=== PATIENT | female | born 1940 | race Asian ===

== ENCOUNTER 2025-03-12 15:04 | Emergency (ER) | payer BC, OTHER, SELFPAY ==
[2025-03-12] VITALS (12 sets, daily range): BP systolic 102–132; BP diastolic 44–74; BMI 23.7
[2025-03-12 16:00] LABS: Hematocrit 26.8 % (37.0-47.0); Hemoglobin 9.2 g/dL (12.0-16.0); Mean Corp Hgb Conc. 34.3 g/dL (33.0-37.0); Mean Corpuscular Volume 98.5 fL (81.0-99.0); Nucleated Red Blood Cells % 0 %; Platelet Count 134 10^3/uL (130-400); Red Cell Dist. Width 11.7 % (11.5-14.5)
[2025-03-12 16:04] LABS: ALT (SGPT) 14 U/L (0-35); AST (SGOT) 25 U/L (14-36); Albumin 3.6 g/dl (3.5-5.0); Alkaline Phosphatase 45 U/L (38-126); Blood Urea Nitrogen 39 mg/dl (7-17); Calcium 8.9 mg/dl (8.4-10.2); Carbon Dioxide 24 mmol/L (22-30); Chloride 113 mmol/L (98-107); Estimated Creatinine Clearance 24 ml/min; Glucose 145 mg/dl (70-99); Potassium 4.3 mmol/L (3.5-5.1); Sodium 141 mmol/L (135-145); Total Protein 6.5 g/dl (6.3-8.2); eGFR 34.58
[2025-03-12] MEDS: NSS 250 IV ×2 (17:03→17:39)
[2025-03-12] MEDS: ZOFRAN 4 MG IV (17:04)
[2025-03-12] MEDS: PROTONIX IV 40 MG IV (17:04)
[2025-03-12 17:39] LABS: Lipase 244 U/L (23-300)
--- NOTE | 2025-03-12 17:49 | ED.GENMED ---
History of Present Illness
<Tarsha Anderson PA-C - Last Filed: 03/14/25 09:13>
General
Chief Complaint: Overdose Unintentional
Source: family
Exam Limitations: dementia
Time Seen by Provider: 03/12/25 16:33
Nursing documentation reviewed up to this point in time: agreed with
History of Present Illness
History of Present Illness:
pt is a 84 y/o F
h/o dementia
afib on eliquis
here with n/v/d, epigastric pain after accidentally taking her 's morning meds
pt just moved in with daughter who is taking care of both pt and her hsuband who have dementia
pt's daughter put dad's meds on a spoon and walked away with him inside and when she came back to the [facility], the patient had taken the meds on the spoon
each were 1 dose:
rexulti 2 mg
metformin 500 mg
doxazosin 4 mg
paroxetine 10 mg
AREDS 2 soft gel
pt was fine for 2 hours and then developed diarrhea, then fatigue, nausea/vomiting x 1
was hypotensive for EMS
bg 300
given ivf
now occasionally belching with epigastirc pain and saying she has headache
she is communicative and can answer questions
at her [facility] mental status
no cp, sob, syncope, persistent vomiting, black stool
has cr baseline 1.3
Past History
<Tarsha Anderson PA-C - Last Filed: 03/14/25 09:13>
Past History
ED Past Medical History: Arrthythmia, HTN, Other (dementia) and Other (ckd)
Social History
Tobacco: Non-smoker
Alcohol: None
Drug: None
Personal:
Living: with family
Review of Systems
<Tarsha Anderson PA-C - Last Filed: 03/14/25 09:13>
Review of Systems
Allergies reviewed?: Yes
All Other Systems: Not applicable
Phy Exam
<Tarsha Anderson PA-C - Last Filed: 03/14/25 09:13>
Physical Exam
Physical Exam:
GENERAL: Alert , pale; eyes closed, opens to stimuli, answers questions, sleepy in no apparent distress
EYE: pupils equal and reactive
NECK: Supple
ENT: o/p clr, mmm.
CARDIAC: irregular rhythm, rate controlled, no edema
LUNGS: Clear breath sounds bilaterally, no acute respiratory distress, no wheezes/rales/rhonchi
ABDOMEN: Soft, mild epigastric tenderness; no r/g, no cvat, normal bowel sounds
rectal heme NEG brown stool
NEUROLOGICAL: Alert and oriented x 1 no focal neuro deficits
SKIN: Warm and dry, skin intact. pale
MUSCULOSKELETAL: No edema, well perfused. neg ada's sign
PSYCH: Normal and appropriate interaction.
Course
<Tarsha Anderson PA-C - Last Filed: 03/14/25 09:13>
Orders/Labs/Results
Orders:
Orders
03/12/25 15:28
Electrocardiogram (*1) Urgent
Reason for Study: Other
Other Reason for Exam: Potential overdose
Bedside Glucose- Treatment ONCE
Cardiac Monitoring- Treatment ONCE
EKG- Treatment ONCE
03/12/25 15:33
Complete Blood Count/With Diff Urgent
Comprehensive Metabolic Panel Urgent
Lipase Urgent
Comment: ADD ON
03/12/25 16:51
0.9% Sodium Chloride 250 ml [Nss] 250 ml IV BOLUS
03/12/25 16:54
Ondansetron Injectable [Zofran] 4 mg IV NOW STA
Pantoprazole [Protonix IV] 40 mg IV NOW STA
03/12/25 16:55
Add On- LAB Urgent
Tests Added?: lipase
03/12/25 17:39
0.9% Sodium Chloride 250 ml [Nss] 250 ml IV BOLUS
Abnormal Lab Results
03/12/25
15:33
WBC 4.2 L 10^3/uL
(4.8-10.8)
RBC 2.72 L 10^6/uL
(4.20-5.40)
Hgb 9.2 L g/dL
(12.0-16.0)
Hct 26.8 L %
(37.0-47.0)
MCH 33.8 H pg
(27.0-31.0)
Absolute Lymphs (auto) 0.7 L 10^3/uL
(1.2-3.4)
Neutrophils % 78.2 H %
(42.2-75.2)
Lymphocytes % 15.8 L %
(20.5-51.1)
Chloride 113 H mmol/L
(98-107)
BUN 39 H mg/dl
(7-17)
Creatinine 1.5 H mg/dL
(0.6-1.0)
Glucose 145 H mg/dl
(70-99)
03/12/25 15:33
03/12/25 15:33
Vital Signs
Initial and Last Documented VS:
Initial Vital Signs
BP
109/44
03/12/25 15:12
Last Documented Vital Signs
Temp Pulse Resp BP Pulse Ox
36.4 C 83 19 132/69 98
03/12/25 15:19 03/12/25 19:15 03/12/25 19:15 03/12/25 19:15 03/12/25 19:15
<Nico Zimmerman PA-C - Last Filed: 03/12/25 20:46>
Orders/Labs/Results
Orders:
Orders
03/12/25 15:28
Electrocardiogram (*1) Urgent
Reason for Study: Other
Other Reason for Exam: Potential overdose
Bedside Glucose- Treatment ONCE
Cardiac Monitoring- Treatment ONCE
EKG- Treatment ONCE
03/12/25 15:33
Complete Blood Count/With Diff Urgent
Comprehensive Metabolic Panel Urgent
Lipase Urgent
Comment: ADD ON
03/12/25 16:51
0.9% Sodium Chloride 250 ml [Nss] 250 ml IV BOLUS
03/12/25 16:54
Ondansetron Injectable [Zofran] 4 mg IV NOW STA
Pantoprazole [Protonix IV] 40 mg IV NOW STA
03/12/25 16:55
Add On- LAB Urgent
Tests Added?: lipase
03/12/25 17:39
0.9% Sodium Chloride 250 ml [Nss] 250 ml IV BOLUS
Abnormal Lab Results
03/12/25
15:33
WBC 4.2 L 10^3/uL
(4.8-10.8)
RBC 2.72 L 10^6/uL
(4.20-5.40)
Hgb 9.2 L g/dL
(12.0-16.0)
Hct 26.8 L %
(37.0-47.0)
MCH 33.8 H pg
(27.0-31.0)
Absolute Lymphs (auto) 0.7 L 10^3/uL
(1.2-3.4)
Neutrophils % 78.2 H %
(42.2-75.2)
Lymphocytes % 15.8 L %
(20.5-51.1)
Chloride 113 H mmol/L
(98-107)
BUN 39 H mg/dl
(7-17)
Creatinine 1.5 H mg/dL
(0.6-1.0)
Glucose 145 H mg/dl
(70-99)
03/12/25 15:33
03/12/25 15:33
Vital Signs
Initial and Last Documented VS:
Initial Vital Signs
BP
109/44
03/12/25 15:12
Last Documented Vital Signs
Temp Pulse Resp BP Pulse Ox
36.4 C 83 19 132/69 98
03/12/25 15:19 03/12/25 19:15 03/12/25 19:15 03/12/25 19:15 03/12/25 19:15
<Tarsha Anderson PA-C - Last Filed: 03/14/25 09:13>
MDM/Problems Addressed
Differential Diagnosis Includes:
gastritis, vomiting, diarrhea, medication side effects
MDM/Problems Addressed:
84 y/o F with dementia, afib on eliquis
here with gi upset after taking her 's pills accidentally
pt is at her [facility] mental status but a bit sleepy and c/o epigastric pain
vomit and diarrhea x 1 only
no h/o GI problems
was mildly hypotensive which resolved
daughter was able to pull up lab merlin cr results but not hg
cr usually 1.3; 1.5 today; given IVF
hg is 9.2 no old to copmare
heme neg so doubt this is part of clinical picture today
f/u with pcp
plan to observe for 2-3 horus for drop in bp and GI upset
if improved, d/c home
<Tarsha Anderson PA-C - Last Filed: 03/14/25 09:13>
*Pulse Oximetry
SaO2: 100
Oxygen Mode of Delivery: Room air
<Nico Zimmerman PA-C - Last Filed: 03/12/25 20:46>
*Pulse Oximetry
Patient hypoxic: no
*Critical Care Note
Total Time (30-74mins, 75-104mins- exclusive of procedures): Not Applicable
<Nico Zimmerman PA-C - Last Filed: 03/12/25 20:46>
Update Note
Update Note:
6 PM: Patient received in signout pending reevaluation. I spoke with patient's daughter who states that patient continues to be symptom-free and feels well. Was asking for something to eat and drink which she tolerated here without any difficulty.
Daughter feels comfortable taking the patient home. We discussed return precautions to the ER and daughter was agreeable with this. Stable for discharge home.
ED Attending Note
<Tarsha Anderson PA-C - Last Filed: 03/14/25 09:13>
-
Portions of this chart may have been created with voice recognition software.� Occasional wrong word or��sound alike� substitutions may have occurred due to the inherent limitations of voice recognition software.
Discharge Plan
Departure
Patient Disposition: Home (Routine Discharge)
Date of Disposition: 03/12/25
Time of Disposition: 19:14
Patient with high blood pressure during this ER visit?: No
Discharge Problem:
Ingestion, drug, inadvertent or accidental
Instructions: Medication safety
Prescriptions:
No Action
donepezil 5 mg Tablet
5 mg PO DAILY
losartan 25 mg Tablet
25 mg PO DAILY
furosemide 20 mg Tablet
20 mg PO PRN PRN (Reason: as directed for swelling)
metoprolol tartrate 25 mg Tablet
25 mg PO BID
calcium carbonate-vitamin D3 [Calcium 500 + D] 500 mg-5 mcg (200 unit) Tablet
1 tab PO DAILY
Eliquis 2.5 mg Tablet
2.5 mg PO BID
Kerendia 10 mg Tablet
10 mg PO DAILY
Referrals:
Karen Beltran MD [Family Provider, Family Practice]
Interventions
Interventions:
*Risk Screen - Suicide Last Done: 03/12/25 15:19
*General Assessment Last Done: 03/12/25 15:19
*Neglect/Abuse Screening Last Done: 03/12/25 15:19
*ED- Fall Risk Assessment Last Done: 03/12/25 19:29
*ED COVID-19 Vaccine History Last Done: 03/12/25 15:19
*Nursing Disposition Last Done: 03/12/25 19:29
ED- Cardiac Assessment Last Done: 03/12/25 16:06
ED- Neurological Assessment Last Done: 03/12/25 16:06
ED-Psychological Assessment Last Done: 03/12/25 16:06
ED- Pulmonary Assessment Last Done: 03/12/25 16:06
Discharge Date and Time
Discharge Date/Time: 03/12/25 19:42
Print Language: AMHARIC
== END 2025-03-12 19:42 | disposition home or self-care (01) ==
LOC: EMR 15:04
PROVIDERS: Emergency Medicine; EMERGENCY PHYSICIAN Emergency Medicine; FAMILY PHYSICIAN Family Medicine
DX: T50.901A Poisoning by unspecified drugs, medicaments and biological substances, accidental (unintentional), initial encounter (principal); Y92.9 Unspecified place or not applicable; R11.2 Nausea with vomiting, unspecified; R10.13 Epigastric pain; F03.90 Unspecified dementia, unspecified severity, without behavioral disturbance, psychotic disturbance, mood disturbance, and anxiety; I48.91 Unspecified atrial fibrillation; I12.9 Hypertensive chronic kidney disease with stage 1 through stage 4 chronic kidney disease, or unspecified chronic kidney disease; N18.9 Chronic kidney disease, unspecified; Z79.01 Long term (current) use of anticoagulants; Z79.899 Other long term (current) drug therapy
CPT/HCPCS: 99283; 96374; 96375; 96361; 80053; 83690; 85025; 93005